=== PATIENT | male | born 1955 | race Caucasian/White ===

== ENCOUNTER 2016-05-22 03:05 | Inpatient (IN) ==
[2016-05-22 03:52] LABS: MANUAL DIFF NEEDED? NO
[2016-05-22 03:54] LABS: BASO% 0.2 % (0.0-0.8); EOS# 0.12 X1000 (0.0-0.7); EOS% 0.7 % (0.0-10.0); HEMATOCRIT 38.7 % (42.0-52.0); HEMOGLOBIN 13.5 g/dL (14.0-18.0); IMM GRAN# 0.07 X1000 (0.0-0.04); IMM GRAN% 0.4 % (0.0-0.5); LYMPH# 0.71 X1000 (1.2-3.4); LYMPH% 4.1 % (20.5-51.1); MCH 30.6 PG (27-31); MCHC 34.9 g/dL (33-37); MCV 87.8 FL (81-99); MONO# 1.75 X1000 (0.11-0.59); MONO% 10.1 % (1.7-9.3); MPV 12.7 FL (7.4-10.4); NEUT% 84.5 % (42.2-75.2); PLT 117 X1000 (130-400); RBC 4.41 XMIL (4.7-6.1)
[2016-05-22 03:54] LABS: URINE CULTURE NEEDED? NO; URINE MICRO REVIEW NEEDED? NO
[2016-05-22 03:57] LABS: BILIRUBIN URINE NEGATIVE (NEGATIVE); BLOOD URINE TRACE (NEGATIVE); COLOR YELLOW; GLUCOSE URINE NEGATIVE (NEGATIVE); LEUKOCYTES URINE NEGATIVE (NEGATIVE); NITRITE URINE NEGATIVE (NEGATIVE); PROTEIN URINE NEGATIVE (NEGATIVE); SP GRAVITY URINE 1.009; TURBIDITY URINE CLEAR (CLEAR); UROBILINOGEN URINE NORMAL (NORMAL)
[2016-05-22 03:59] LABS: UR EPITHELIAL CELLS <10 /HPF (<10); URINE BACTERIA NEGATIVE /HPF; URINE RBC <10 /HPF (<10); URINE WBC <10 /HPF (<10)
[2016-05-22 04:16] LABS: URINE SOURCE CLEAN CATCH
[2016-05-22 04:31] LABS: UR AMPHETAMINES QUAL NONE DETECTED (NONE DETECT); UR BARBITUATES QUAL NONE DETECTED (NONE DETECT); UR BENZODIAZEPIN QUAL NONE DETECTED (NONE DETECT); UR CANNABINOIDS QUAL NONE DETECTED (NONE DETECT); UR COCAINE QUAL NONE DETECTED (NONE DETECT); UR METHADONE QUAL NONE DETECTED (NONE DETECT); UR OPIATES QUAL PRESUMPTIVE POSITIVE (NONE DETECT); UR OXYCODONE QUAL PRESUMPTIVE POSITIVE (NONE DETECT); UR PCP QUAL NONE DETECTED (NONE DETECT)
[2016-05-22 04:31] LABS: AGAP 17; ALBUMIN 4.3 g/dL (3.5-5.0); ALKALINE PHOSPHATASE 78 U/L (32-122); BUN 19 mg/dL (8-22); CALCIUM 11.2 mg/dL (8.8-10.2); CHLORIDE 89 mmol/L (98-107); CK PROFILE 83 U/L (24-204); COSMO 268; GOT 16 U/L (10-34); GPT 12 U/L (10-44); POTASSIUM 2.8 mmol/L (3.5-5.1); SODIUM 132 mmol/L (136-145); TCO2 26 mmol/L (25-35); TOTAL BILIRUBIN 2.21 mg/dL (0.20-1.00)
[2016-05-22 04:38] LABS: INR 0.96; PROTIME 9.8 Seconds (9.2-11.7); PTT 30.5 Seconds (22.0-36.0)
[2016-05-22] MEDS ORDERED: KLOR-CON PO ONE (04:39)
[2016-05-22 05:00] LABS: ALLEN TEST YES; BE 4.1 mmoll (-3.0-3.0); BLOOD TYPE ARTERIAL; DRAW SITE R RADIAL; METHB 1.5 % (0.0-1.5); MODALITY ROOM AIR; O2(CT) 18.2 mL/dL (15.0-23.0); PCO2(98.6) 41 mmHg (35-45); PO2(98.6) 63 mmHg (60-100); SAMPLE BLOOD; SAO2 97.5 % (95.0-100.0); THB 13.9 g/dL (11.5-17.4); pH(98.6) 7.45 (7.35-7.45)
[2016-05-22] MEDS ORDERED: VANCOMYCIN 1 GM/NS 1 GM/250 ML IVPB IV ONE (06:04)
[2016-05-22] MEDS ORDERED: ZOSYN 3.375 GM/NS 3.375 GM/50 ML IVPB IV ONE (06:05)
--- NOTE | 2016-05-22 06:30 | PROVIDER DOCUMENTATION ---
This chart was entered by Master Watt Scribe, acting as scribe for Marcus Fink MD. HPI-General Adult - General Chief Complaint: Altered Mental Status Stated Complaint: AMS Time Seen by Provider: 05/22/16 03:47 Source: patient, family Allergies/Adverse Reactions: Patient Allergies Allergy/AdvReac Type Severity Reaction Status Date / Time No Known Allergies Allergy Verified 05/22/16 03:35 Home Medications: Home Medication List Medication Instructions Recorded Confirmed Last Taken Type Amlodipine Besylate [Norvasc] 10 mg PO DAILY 05/23/16 05/24/16 05/23/16 History Hydrochlorothiazide 25 mg PO DAILY 05/23/16 05/24/16 05/23/16 History Doxycycline [Vibramycin] 100 mg PO DAILY PRN 05/24/16 05/24/16 Unknown History Losartan Potassium 100 mg PO DAILY 05/24/16 05/24/16 Unknown History Potassium Chloride 10 meq PO DAILY 05/24/16 05/24/16 Unknown History - History of Present Illness -Gen Adult Nature of Presenting Problems: Pt is a 60 yom who presents to ER via EMS with CC of AMS. reports that pt had a lumbar lamenectomy performed on , was discharged Monday and given rx for hydrocondone and flexiril. reports that pt "took way too many muscle relaxers and pain pills, is high as a kite, and hasn't changed in almost 24 hours." reports that pt has been hallucinating all day and was unable to ambulate on Monday after being driven home. Pt reports that no matter how many pain pills he took, the pain would not resolve. Location of Pain/Injury: reports: back Pain Radiation: reports: no radiation Quality of Pain: reports: aching, cramping Severity: reports: severe Onset/Duration: reports: 24 hours ago Timing: reports: still present Associated Symptoms: reports: back/neck pain, constipation, swelling/mass in abdomen, trouble walking, other (hallucinating). denies: anxiety, arm pain, chest pain, cough, diaphoresis, diarrhea, dizziness, EENT symptoms, fatigue, fever/chills, genitourinary problems, headaches, heartburn, joint pain, loss of appetite, malaise, muscle aches, sinus congestion/drainage, nausea, rash, seizure, shortness of breath, sensory/motor loss, pain with inspiration, syncope , vomiting, weakness Similar Symptoms Previously?: No Recently seen or treated by another doctor?: Yes (Lumbar lemenectomy on ) Review of Systems - Adult - REVIEW OF SYSTEMS - ADULT Constitutional: denies: chills, fever, fatique, night sweats, weight gain, weight loss Eyes: reports: no symptoms reported Ears, Nose, Mouth & Throat: reports: no symptoms reported Cardiovascular: reports: no symptoms reported Respiratory: reports: no symptoms reported Gastrointestinal: reports: no symptoms reported Genitourinary: reports: no symptoms reported Musculoskeletal: reports: back pain, joint pain, muscle aches, muscle weakness. denies: bone pain, frequent leg cramps, joint swelling, neck pain Integumentary: reports: no symptoms reported Neurological: reports: no symptoms reported Psychiatric: reports: other (hallucinating). denies: anxiety, anti-depressant use, alcohol/drug dependence, depression, emotional problems, insomnia, panic attacks, suicidal thoughts Endocrine: reports: no symptoms reported Hematologic/Lymphatic: reports: no symptoms reported Allergic/Immunologic: reports: no symptoms reported All Other Systems: Reviewed and Negative Past History - Adult - PAST MEDICAL HISTORY-ADULT Review of Records: reports: Old Records Reviewed, Nursing Assessment Review, Medications Reviewed - IMMUNIZATION STATUS Childhood Immunizations: See Nurse Assessment Flu Vaccine: See Nurse Assessment Physical Exam-General - PHYSICAL EXAM-ADULT Initial Vital Signs Reviewed: Yes - CONSTITUTIONAL General Appearance: appears well, alert, moderate distress, lethargic. negative : no apparent distress, mild distress, severe distress, cachetic, obese, thin, anxious, slow to respond, obtunded, combative - EYES Eyes: PERRL/EOMI, fundi clear, no AV nicking, scleral icterus. negative: pink conjunctivae - HEAD, EARS, NOSE, MOUTH & THROAT HENMT: normocephalic/atraumatic, moist mucous membranes, normal ENT inspection - NECK Neck: non-tender, full range of motion, supple. negative: C-spine tenderness, limited range of motion, lymphadenopathy - RESPIRATORY Respiratory: chest non-tender, lungs clear, normal breath sounds, no pleuratic chest pain, no respiratory distress, no accessory muscle use. negative: respiratory distress, decreased breath sounds, accessory muscle use, wheezing - CARDIOVASCULAR Cardiovascular: normal peripheral pulses, tachycardia, other (hypertensive (163/ 99)). negative: regular rate, rhythm, bradycardia, irregularly irregular - GASTROINTESTINAL (ABDOMEN) Abdominal Exam: normal bowel sounds, non tender, mass (superpubic/RUQ/RLQ). negative: soft, tenderness - LYMPHATIC Lymphatic: no adenopathy - MUSCULOSKELETAL Back Exam: normal inspection, no CVA tenderness, no vertebral tenderness Extremity: normal range of motion, non-tender - SKIN Integumentary: normal color, normal turgor, warm/dry, warm. negative: abrasion( s), diaphoresis, ecchymosis, erythema, laceration(s), swelling, tenderness - NEUROLOGIC Neurologic: grossly normal, no motor/sensory deficits - PSYCHIATRIC Psych/Mental Status: normal thought content, normal thought process, oriented x 3, depressed affect. negative: normal mood/affect Progress - PLAN OF CARE/RESULTS Progress/Plan/Lab Results: Vital Signs - 8 hr 05/22/16 03:05 05/22/16 03:28 05/22/16 04:27 Temperature 97.6 F 97.6 F Pulse Rate 117 H 113 H 109 H Respiratory Rate 23 22 21 Blood Pressure 131/86 131/86 142/88 O2 Sat by Pulse Oximetry 93 L 93 L 95 Laboratory Results - last 24 hr 05/22/16 05/22/16 05/22/16 03:00 03:00 03:00 WBC 17.31 H RBC 4.41 L Hgb 13.5 L Hct 38.7 L MCV 87.8 MCH 30.6 MCHC 34.9 RDW Std Deviation 14.1 Plt Count 117 L MPV 12.7 H Immature Gran % (Auto) 0.4 Neut % (Auto) 84.5 H Lymph % (Auto) 4.1 L [place] % (Auto) 10.1 H Eos % (Auto) 0.7 Baso % (Auto) 0.2 Immature Gran # (Auto) 0.07 H Neut # (Auto) 14.63 H Lymph # (Auto) 0.71 L [place] # (Auto) 1.75 H Eos # (Auto) 0.12 Baso # (Auto) 0.03 PT INR PTT (Actin FS) Sodium 132 L Potassium 2.8 L Chloride 89 L Carbon Dioxide 26 Anion Gap 17 BUN 19 Creatinine 0.8 Estimated GFR/1.73 m2 > 60 BUN/Creatinine Ratio 24 Glucose 115 H POC Glucose Calculated Osmolality 268 Calcium 11.2 H Total Bilirubin 2.21 H AST 16 ALT 12 Alkaline Phosphatase 78 Creatine Kinase 83 Troponin T Total Protein 7.0 Albumin 4.3 Globulin 2.7 Albumin/Globulin Ratio 1.6 Urine Source Urine Color Urine Turbidity Urine pH Ur Specific [place] Urine Protein Ur Glucose (Stick) Ur Ketones (Stick) Urine Blood Urine Nitrite Urine Bilirubin Urobilinogen Dipstick Urine Leukocytes Urine WBC (Auto) Urine RBC (Auto) U Epithel Cells (Auto) Urine Bacteria (Auto) Urine Opiates Screen Ur Oxycodone Screen Ur Methadone, Qual Ur Barbiturates Screen Ur Phencyclidine Scrn Ur Amphetamines Screen U Benzodiazepines Scrn Urine Cocaine Screen U Cannabinoids Screen Plasma/Serum Ethyl Alc 05/22/16 05/22/16 05/22/16 03:00 03:00 03:18 WBC RBC Hgb Hct MCV MCH MCHC RDW Std Deviation Plt Count MPV Immature Gran % (Auto) Neut % (Auto) Lymph % (Auto) [place] % (Auto) Eos % (Auto) Baso % (Auto) Immature Gran # (Auto) Neut # (Auto) Lymph # (Auto) [place] # (Auto) Eos # (Auto) Baso # (Auto) PT 9.8 INR 0.96 PTT (Actin FS) 30.5 Sodium Potassium Chloride Carbon Dioxide Anion Gap BUN Creatinine Estimated GFR/1.73 m2 BUN/Creatinine Ratio Glucose POC Glucose 98 Calculated Osmolality Calcium Total Bilirubin AST ALT Alkaline Phosphatase Creatine Kinase Troponin T < 0.010 Total Protein Albumin Globulin Albumin/Globulin Ratio Urine Source Urine Color Urine Turbidity Urine pH Ur Specific [place] Urine Protein Ur Glucose (Stick) Ur Ketones (Stick) Urine Blood Urine Nitrite Urine Bilirubin Urobilinogen Dipstick Urine Leukocytes Urine WBC (Auto) Urine RBC (Auto) U Epithel Cells (Auto) Urine Bacteria (Auto) Urine Opiates Screen Ur Oxycodone Screen Ur Methadone, Qual Ur Barbiturates Screen Ur Phencyclidine Scrn Ur Amphetamines Screen U Benzodiazepines Scrn Urine Cocaine Screen U Cannabinoids Screen Plasma/Serum Ethyl Alc 05/22/16 05/22/16 03:45 03:45 WBC RBC Hgb Hct MCV MCH MCHC RDW Std Deviation Plt Count MPV Immature Gran % (Auto) Neut % (Auto) Lymph % (Auto) [place] % (Auto) Eos % (Auto) Baso % (Auto) Immature Gran # (Auto) Neut # (Auto) Lymph # (Auto) [place] # (Auto) Eos # (Auto) Baso # (Auto) PT INR PTT (Actin FS) Sodium Potassium Chloride Carbon Dioxide Anion Gap BUN Creatinine Estimated GFR/1.73 m2 BUN/Creatinine Ratio Glucose POC Glucose Calculated Osmolality Calcium Total Bilirubin AST ALT Alkaline Phosphatase Creatine Kinase Troponin T Total Protein Albumin Globulin Albumin/Globulin Ratio Urine Source CLEAN CATCH Urine Color YELLOW Urine Turbidity CLEAR Urine pH 6.0 Ur Specific [place] 1.009 Urine Protein NEGATIVE Ur Glucose (Stick) NEGATIVE Ur Ketones (Stick) TRACE A Urine Blood TRACE A Urine Nitrite NEGATIVE Urine Bilirubin NEGATIVE Urobilinogen Dipstick NORMAL Urine Leukocytes NEGATIVE Urine WBC (Auto) <10 Urine RBC (Auto) <10 U Epithel Cells (Auto) <10 Urine Bacteria (Auto) NEGATIVE Urine Opiates Screen PRESUMPTIVE POSITIVE A Ur Oxycodone Screen PRESUMPTIVE POSITIVE A Ur Methadone, Qual NONE DETECTED Ur Barbiturates Screen NONE DETECTED Ur Phencyclidine Scrn NONE DETECTED Ur Amphetamines Screen NONE DETECTED U Benzodiazepines Scrn NONE DETECTED Urine Cocaine Screen NONE DETECTED U Cannabinoids Screen NONE DETECTED Plasma/Serum Ethyl Alc Orders Category Date Time Status Cardiac Monitoring DIRECTED Care 05/22/16 03:43 Active Finger Stick Blood Sugar (ED) DIRECTED Care 05/22/16 03:43 Active Oxygen Therapy- ED Nursing DIRECTED Care 05/22/16 03:43 Active Saline Loc NOW Care 05/22/16 03:43 Active CHEST-PORTABLE [RAD] Stat Exams 05/22/16 03:43 Taken ABG [RESP] Routine Lab 05/22/16 03:43 Ordered ALCOHOL BLOOD Stat Lab 05/22/16 03:00 Completed CBC WITH ELECTRONIC DIFF [HEME] Stat Lab 05/22/16 03:00 Completed CK PROFILE [SP CHEM] Stat Lab 05/22/16 03:00 Completed COMPREHENSIVE METABOLIC PANEL [CHEM] Stat Lab 05/22/16 03:00 Completed PROTIME WITH INR [COAG] Stat Lab 05/22/16 03:00 Completed PTT [COAG] Stat Lab 05/22/16 03:00 Completed TROPONIN T Stat Lab 05/22/16 03:00 Completed URINALYSIS W/POSS RFLX CULT [URINALYSIS] Stat Lab 05/22/16 03:45 Completed URINE DRUG SCREEN Stat Lab 05/22/16 03:45 Completed Potassium Chloride E.r. [Klor-Con] Med 05/22/16 04:39 Discontinued 60 meq PO NOW ONE Pulse Oximetry Stat Oth 05/22/16 03:43 Active EKG [EKG] Stat Ther 05/22/16 03:43 Ordered Result Diagrams: 05/25/16 05:49 05/25/16 05:49 - EKG 1 Time of EKG reading by physician:: 03:17 EKG Read and Signed by:: Marcus Fink EKG Interpretation (*Must complete 3 of following elements*): Abnormal ( Biatrial enlargement; Nonspecific ST abnormality) Rate: 115 - XRAY 1 XRAY: Bilateral XRAY Study: Chest Impression: See EMR Report XRAY Interpretation: Negative Departure - Departure Time of Disposition Decision: 06:06 DIAGNOSIS: Altered mental state Qualifiers: Altered mental status type: unspecified Qualified Code(s): R41.82 - Altered mental status, unspecified Disposition: ADMITTED INPATIENT 09 Certified Medical Emergency: Emergent Condition: Stable This chart was documented by the indicated scribe, (Master Watt, Maye) and accurately reflects the services I performed and decisions made by , Marcus Fink MD, as attested by the provider's signature.
--- NOTE | 2016-05-22 09:52 | Diag Imaging Result Document ---
PROCEDURE NAME: CHEST-PORTABLE - 05/22/2016 PORTABLE CHEST: No comparison exam. FINDINGS: Allowing for the AP projection, heart size appears within normal limits. There is tortuosity of the thoracic aorta. Inspiration is mildly shallow. The lungs appear clear. There is no pleural effusion or pneumothorax identified. IMPRESSION: Mildly shallow inspiration. No other evidence of acute disease.
[2016-05-22] MEDS ORDERED: ROBAXIN 1,000 MG in NS 50 ML IV PRN (10:22)
--- NOTE | 2016-05-22 11:30 | Diag Imaging Result Document ---
PROCEDURE NAME: HEAD W/O CONTRAST - 05/22/2016 CT HEAD WITHOUT CONTRAST: TECHNIQUE: A dose reduction protocol was used. No comparison exam. FINDINGS: There are mild atrophic changes and mild chronic appearing microvascular ischemic changes. There is no indication of recent infarct, although acute infarcts may not be immediately visible. There is mild ventricular asymmetry compatible with normal variation. There is no evidence of hemorrhage, mass effect, midline shift, or hydrocephalus. Visualized portions of paranasal sinuses appear clear. IMPRESSION: No visible acute intracranial abnormality. No hemorrhage or mass effect.
[2016-05-22] MEDS ORDERED: VANCOMYCIN IV PER PHARMACY MISC SCH (13:10)
[2016-05-22] MEDS ORDERED: ZOFRAN IV PRN (13:10)
[2016-05-22] MEDS: NS 1,000 ML IV SCH ×2 (13:34→21:36)
[2016-05-22] MEDS: TYLENOL PO PRN ×2 (13:34→21:48)
--- NOTE | 2016-05-22 13:58 | Diag Imaging Result Document ---
PROCEDURE NAME: FEMUR MIN 2 VIEWS RIGHT - 05/22/2016 RIGHT FEMUR, 4 VIEWS: FINDINGS: There is no fracture identified. There is no hip dislocation identified. There is no destructive or sclerotic lesion identified. IMPRESSION: Unremarkable exam.
--- NOTE | 2016-05-22 14:00 | Diag Imaging Result Document ---
PROCEDURE NAME: LOWER LEG-RIGHT - 05/22/2016 RIGHT LOWER LEG, 4 VIEWS: FINDINGS: There is no fracture identified. There is no destructive or sclerotic lesion identified. IMPRESSION: Unremarkable exam.
--- NOTE | 2016-05-22 15:07 | HISTORY AND PHYSICAL ---
PRIMARY CARE PROVIDER: Dr. Guerrero. PRIMARY NEURO ORTHOPEDIC: Dr. Bond in [place]. CHIEF COMPLAINT: Right lower extremity pain from the knee down and altered mental status. HISTORY OF PRESENT ILLNESS: Mr. Kalin José is a 60-year-old male who reports a medical history of hypertension and BPH and this is found through ER record. The was not at the bedside during my visit but apparently on he had a lumbar laminectomy by Dr. Bond in [place]. He was discharged Monday with prescriptions for hydrocodone and Flexeril. Apparently the reports that he has been high for 24 hours experiencing hallucinations. He did not ambulate on Monday and the patient states that the pain would not go away despite the amount of pain medications. When he arrived a Jose catheter was placed and at 2500 mL of urine output they clamped the Jose and then later they unclamped it and he had an additional 2100 mL of urine output. He denies fever, chills. He does state that he is constipated and his last bowel movement was Monday before the surgery. Denies blood in his urine or stool. States that he has not been able to void. He has a history of BPH and TURP procedure back in the 80s. When asked him about pain he states that he has pain from the right knee down to the foot and is very sensitive to touch. There is some mild coolness compared to the left leg noted but there is good pulses bilaterally and he has walked to the bathroom without difficulties. Will hold all pain medications and muscle relaxers, send him for head CT to rule out any disorders of the brain that can be obtained through CT. He does have some hallucinations. He is able to tell me his name and what year it is but not where he is at and he is good bit delusional also just random thoughts. Vitals are stable. Will send him to the medical floor and continue with IV fluid hydration, regular diet. PAST MEDICAL HISTORY: Hypertension, BPH. SURGICAL HISTORY: TURP in the 80s and recently lumbar laminectomy. SOCIAL HISTORY: Denies tobacco. He says he drinks 1-2 bourbons over ice every day. Denies illicit drug use and lives with his . FAMILY HISTORY: Father had a stroke. REVIEW OF SYSTEMS: Difficult to obtain but essentially were negative except for those mentioned in the above HPI. ALLERGIES: No known drug allergies. HOME MEDICATIONS: Norvasc 2.5 mg p.o. daily, Flexeril 10 mg p.o. t.i.d. as needed, hydrochlorothiazide 12.5 mg p.o. daily, [place] 7.5 one tab p.o. every 6 hours as needed, Robaxin 750 mg p.o. t.i.d. as needed. PHYSICAL EXAMINATION: VITAL SIGNS: Temperature is 98.2 degrees, heart rate 99, respiratory rate 17, blood pressure 158/95, saturation 95% on 2 L nasal cannula. GENERAL: Mr. José is a 60-year-old male who appears very healthy. He is not in any acute distress but is having random conversations. He is able answers some questions appropriately. HEENT: Atraumatic, normocephalic. Pupils equal, round, reactive to light. Mucous membranes dry. NECK: No JVD or carotid bruits. CARDIOVASCULAR: S1, S2. Regular rate and rhythm. No rubs, gallops, or murmurs. PULMONARY: Clear to auscultation. Bilateral breath sounds. No accessory muscle use or work of breathing noted. GI: Soft, nontender, nondistended. Positive bowel sounds x4. NEUROLOGIC: A and O times name and year only, random conversations, follows commands, moves all extremities equally. SKIN: Warm, dry, intact. Back incision with a antibiotic blue so incision is intact, no signs of infection. EXTREMITIES: Right knee all the way down to the foot is mildly cooler than the left leg. He has got +2 dorsalis and radial pulses and moves extremities equally. Severe pain with the right leg when he moves it or when is touched. ASSESSMENT AND PLAN: 1. Metabolic questionable infectious, questionable toxic encephalopathy. Mentation is altered. Will send for stat head CT and there is no nuchal rigidity but if he seems to worsen with his mentation will consider spinal tap for cultures. 2. Hypokalemia. Received 60 p.o. potassium, will recheck at 5 o'clock. 3. Leukocytosis. Lactate is normal. His white blood cells 17,000, temperature is 98.1 degrees. He has had a recent surgery, maybe even had steroids at some point but is unknown but blood cultures have been sent. Urinalysis and culture has been sent. There is no productive cough so sputum has not been ordered. He will be on vancomycin and Zosyn for broad spectrum coverage. 4. Hypertension. Continue home medications. 5. Urinary retention likely secondary to pain medication use. Will continue with Jose catheter. He has had a total of 4600 mL since admit of urine. 6. History of benign prostatic hypertrophy with transurethral resection of prostate. 7. Acute pain secondary to recent surgery. He has used too many pain medications likely and will hold all pain medications for now and Tylenol as needed. 8. He has had a lumbar laminectomy incision was dry and intact with glue intact. He is able walk. Will order physical therapy. 9. Constipation. Stool softeners. 10. Pain of the right knee down. Order ultrasound, Dopplers and x-ray. He does tend to keep his right knee and leg rotated out. He states he has not fallen but he is confused so go ahead and order x-ray imaging just to rule out any injuries. 11. Alcohol abuse. Will have to monitor. He has altered mentation right now. 12. Deep venous thrombosis prophylaxis Lovenox. 13. Gastrointestinal prophylaxis. Proton pump inhibitor. Dictated by JUJU Giraldo for Tae St MD cc: Gael Bond MD
[2016-05-22] MEDS: ZOSYN 3.375 GM/NS 3.375 GM/50 ML IVPB IV SCH ×2 (17:01→21:33)
[2016-05-22] MEDS: ATIVAN IV SCH ×2 (18:13→22:21)
[2016-05-22] MEDS: LIBRIUM PO SCH (18:14)
[2016-05-22] MEDS ORDERED: VALIUM IV ONE ×2 (20:44→22:03)
[2016-05-22] MEDS: VANCOMYCIN 2 GM in NS 500 ML IV SCH (21:33)
[2016-05-22] MEDS: PHENOBARBITAL IV PRN ×2 (21:33→23:57)
[2016-05-22] MEDS: PERICOLACE PO SCH (21:34)
[2016-05-23] MEDS: LIBRIUM PO SCH ×5 (01:22→17:35)
[2016-05-23] MEDS: ATIVAN IV SCH ×6 (02:18→21:36)
[2016-05-23] MEDS: ZOSYN 3.375 GM/NS 3.375 GM/50 ML IVPB IV SCH ×4 (02:18→20:47)
[2016-05-23 02:38] LABS: URINE SOURCE CATH
[2016-05-23 02:40] LABS: BILIRUBIN URINE NEGATIVE (NEGATIVE); BLOOD URINE MODERATE (NEGATIVE); COLOR YELLOW; GLUCOSE URINE NEGATIVE (NEGATIVE); LEUKOCYTES URINE TRACE (NEGATIVE); NITRITE URINE NEGATIVE (NEGATIVE); PROTEIN URINE 100 mg/dL (NEGATIVE); SP GRAVITY URINE 1.033; TURBIDITY URINE CLEAR (CLEAR); UROBILINOGEN URINE NORMAL (NORMAL)
[2016-05-23 02:41] LABS: URINE MICRO REVIEW NEEDED? YES
[2016-05-23 02:42] LABS: UR EPITHELIAL CELLS <10 /HPF (<10); URINE BACTERIA NEGATIVE /HPF; URINE CULTURE NEEDED? YES; URINE RBC TNTC /HPF (<10); URINE WBC <10 /HPF (<10)
[2016-05-23] MEDS: POTASSIUM CHLORIDE 20 MEQ/SWI 20 MEQ/100 ML IVPB IV SCH ×2 (04:09→05:19)
[2016-05-23] MEDS: SODIUM CHLORIDE 0.9% INJ SCH (04:09)
[2016-05-23] MEDS: PROTONIX IV SCH (04:10)
[2016-05-23 04:21] LABS: MANUAL DIFF NEEDED? NO
[2016-05-23 04:23] LABS: BASO% 0.2 % (0.0-0.8); EOS# 0.18 X1000 (0.0-0.7); EOS% 1.6 % (0.0-10.0); HEMATOCRIT 36.9 % (42.0-52.0); HEMOGLOBIN 12.7 g/dL (14.0-18.0); IMM GRAN# 0.05 X1000 (0.0-0.04); IMM GRAN% 0.5 % (0.0-0.5); LYMPH# 1.18 X1000 (1.2-3.4); LYMPH% 10.6 % (20.5-51.1); MCH 30.7 PG (27-31); MCHC 34.4 g/dL (33-37); MCV 89.1 FL (81-99); MONO# 1.18 X1000 (0.11-0.59); MONO% 10.6 % (1.7-9.3); NEUT% 76.5 % (42.2-75.2); PLT 107 X1000 (130-400); RBC 4.14 XMIL (4.7-6.1)
[2016-05-23] MEDS: PHENOBARBITAL IV PRN ×2 (04:24→12:21)
[2016-05-23 04:32] LABS: INR 1.02; PROTIME 10.7 Seconds (9.2-11.7); PTT 34.3 Seconds (22.0-36.0)
[2016-05-23 05:01] LABS: AGAP 17; ALBUMIN 3.7 g/dL (3.5-5.0); ALKALINE PHOSPHATASE 67 U/L (32-122); BUN 13 mg/dL (8-22); CALCIUM 8.7 mg/dL (8.8-10.2); CHLORIDE 100 mmol/L (98-107); COSMO 282; GOT 13 U/L (10-34); GPT 10 U/L (10-44); MAGNESIUM 1.7 mg/dL (1.5-2.7); POTASSIUM 2.9 mmol/L (3.5-5.1); SODIUM 142 mmol/L (136-145); TCO2 25 mmol/L (25-35); TOTAL BILIRUBIN 1.69 mg/dL (0.20-1.00); TOTAL PROTEIN 6.2 g/dL (6.3-8.3)
[2016-05-23] MEDS: TYLENOL PO PRN (05:22)
--- NOTE | 2016-05-23 05:59 | EKG Report ---
Test Performed on : 05/22/2016 03:17:24 AM Test Reason : AMS Blood Pressure : / mmHG Vent. Rate : 115 BPM Atrial Rate : 115 BPM P-R Int : 134 ms QRS Dur : 102 ms QT Int : 334 ms P-R-T Axes : 048 006 052 degrees QTc Int : 462 ms Sinus tachycardia. Biatrial enlargement Nonspecific ST abnormality Abnormal ECG No previous ECGs available Unconfirmed Result
[2016-05-23] MEDS ORDERED: MAGNESIUM SULFATE 2 GM/S.W.I. 2 GM/50 ML IVPB IV ONE (06:40)
[2016-05-23] MEDS ORDERED: PRILOSEC PO SCH (07:00)
[2016-05-23] MEDS ORDERED: LOVENOX SUBQ SCH (09:00)
[2016-05-23] MEDS: HYDROCHLOROTHIAZIDE PO SCH ×3 (09:37→10:10)
[2016-05-23] MEDS: PERICOLACE PO SCH ×4 (09:38→20:47)
[2016-05-23] MEDS: NORVASC PO SCH ×3 (09:38→10:09)
[2016-05-23] MEDS: NS 1,000 ML IV SCH ×3 (10:02→20:46)
[2016-05-23 11:41] LABS: AGAP 16; BUN 13 mg/dL (8-22); CALCIUM 8.2 mg/dL (8.8-10.2); CHLORIDE 101 mmol/L (98-107); COSMO 282; POTASSIUM 3.2 mmol/L (3.5-5.1); SODIUM 142 mmol/L (136-145); TCO2 25 mmol/L (25-35)
[2016-05-23] MEDS ORDERED: POTASSIUM CHLORIDE 60 MEQ in NS 500 ML IV ONE (13:00)
--- NOTE | 2016-05-23 13:30 | PROGRESS NOTE ---
DATE: 05/23/2016 SUBJECTIVE: The patient is currently sedated. OBJECTIVE: Vital Signs: Temperature 97 degrees, blood pressure 163/91, heart rate 97, respirations 14, O2 saturation is 98% on 2 L nasal cannula. General: This is an elderly male, lying in bed, sedated. Head: Normocephalic, atraumatic. Heart: S1, S2 normal. Tachycardic. Lungs: Clear to auscultation bilaterally. Abdomen: Positive bowel sounds. Soft, nontender, nondistended. Extremities: No edema. No cyanosis. No calf tenderness. LABS: White blood cell count 11, hemoglobin 12, hematocrit 36, platelets 107,000. Sodium 142, potassium 3.2, chloride 101, CO2 25, BUN 13, creatinine 0.5, glucose 78, magnesium 1.7, total bilirubin 1.6, AST 13, ALT 10, alkaline phosphatase 67. ASSESSMENT AND PLAN: 1. Acute alcohol withdrawal. We will continue on p.r.n. Ativan and p.r.n. phenobarbital. 2. Leukocytosis. Improved. The patient is currently on empiric antibiotic therapy. So far the cultures were unremarkable and the chest x-ray has been negative. 3. Status post lumbar laminectomy. Aware. 4. Alcohol abuse. Aware. 5. Thrombocytopenia. Will hold anticoagulation at this time. 6. Gastrointestinal prophylaxis. Continue on IV Protonix. cc: Iraida Crawford MD
[2016-05-23] MEDS: VANCOMYCIN 2 GM in NS 500 ML IV SCH (20:48)
[2016-05-24] MEDS: NS 1,000 ML IV SCH (00:54)
[2016-05-24] MEDS: LIBRIUM PO SCH ×6 (01:00→23:32)
[2016-05-24] MEDS: ZOSYN 3.375 GM/NS 3.375 GM/50 ML IVPB IV SCH ×4 (01:09→19:37)
[2016-05-24] MEDS: ATIVAN IV SCH ×7 (01:09→21:44)
[2016-05-24] MEDS: PROTONIX IV SCH (05:07)
[2016-05-24 06:27] LABS: HEMATOCRIT 37.1 % (42.0-52.0); HEMOGLOBIN 12.4 g/dL (14.0-18.0); MCH 30.3 PG (27-31); MCHC 33.4 g/dL (33-37); MCV 90.7 FL (81-99); MPV 12.2 FL (7.4-10.4); RBC 4.09 XMIL (4.7-6.1)
[2016-05-24 06:56] LABS: AGAP 21; BUN 6 mg/dL (8-22); CALCIUM 8.2 mg/dL (8.8-10.2); CHLORIDE 98 mmol/L (98-107); COSMO 272; MAGNESIUM 1.8 mg/dL (1.5-2.7); POTASSIUM 2.7 mmol/L (3.5-5.1); SODIUM 138 mmol/L (136-145); TCO2 19 mmol/L (25-35)
[2016-05-24] MEDS ORDERED: POTASSIUM CHLORIDE 60 MEQ in NS 500 ML IV ONE (06:57)
[2016-05-24] MEDS: HYDROCHLOROTHIAZIDE PO SCH ×2 (08:13→09:54)
[2016-05-24] MEDS: NORVASC PO SCH ×2 (08:13→09:53)
[2016-05-24] MEDS: PERICOLACE PO SCH ×2 (08:13→20:27)
[2016-05-24] MEDS ORDERED: SODIUM PHOSPHATE 40 MMOL in NS 250 ML IV ONE (09:30)
[2016-05-24] MEDS: COZAAR PO SCH (09:53)
--- NOTE | 2016-05-24 12:33 | PROGRESS NOTE ---
DATE: 05/24/2016 SUBJECTIVE: The patient remains sedated. He did have periods of agitation last night and required Ativan. OBJECTIVE: Vital signs: Temperature is 97, blood pressure 170/108, heart rate 91, respirations 24, O2 saturation is 99% on 2 L nasal cannula. General: This is an elderly male lying in bed in no acute distress. Head is normocephalic and atraumatic. Heart: S1, S2 normal. Tachycardic. Lungs: Clear to auscultation bilaterally. Abdomen: Positive bowel sounds. Soft, nontender and nondistended. Extremities: No edema, no cyanosis. Neurologic: The patient is sedated. DIAGNOSTIC DATA: White blood cell count is 8.9, hemoglobin 12, hematocrit 37, platelets 123. Sodium is 138, potassium 2.7, chloride 98, CO2 is 19, BUN is 6, creatinine 0.4, glucose 74, phosphorus 1.7. ASSESSMENT AND PLAN: 1. Alcohol withdrawal. Continue with p.r.n. Ativan and scheduled Librium. 2. Accelerated hypertension. We will start the patient on oral antihypertensives and monitor the pressure closely. If there is no improvement, we will start the patient on a Cardene drip for better blood pressure control. 3. Hypokalemia. We will replace the patient's potassium. 4. Hypophosphatemia. We will replace the patient's phosphorus. 5. History of recent lumbar laminectomy. Aware. 6. Thrombocytopenia. Improved. 7. GI prophylaxis. Continue on IV Protonix. cc: Iraida Crawford MD
[2016-05-24] MEDS ORDERED: CARDENE 20 MG/NS 20 MG/200 ML PIGGYBACK IV SCH (13:00)
[2016-05-24] MEDS: APRESOLINE PO SCH ×2 (13:28→20:27)
[2016-05-24] MEDS: VANCOMYCIN 2 GM in NS 500 ML IV SCH (20:27)
[2016-05-25] MEDS: ZOSYN 3.375 GM/NS 3.375 GM/50 ML IVPB IV SCH ×4 (01:56→20:00)
[2016-05-25] MEDS: ATIVAN IV SCH ×6 (01:56→21:34)
[2016-05-25] MEDS: SODIUM CHLORIDE 0.9% INJ SCH (04:29)
[2016-05-25] MEDS: APRESOLINE PO SCH ×3 (04:29→21:11)
[2016-05-25] MEDS: PROTONIX IV SCH (04:29)
[2016-05-25] MEDS: LIBRIUM PO SCH ×3 (05:34→17:58)
[2016-05-25 07:01] LABS: HEMATOCRIT 38.7 % (42.0-52.0); HEMOGLOBIN 13.5 g/dL (14.0-18.0); MCH 30.4 PG (27-31); MCHC 34.9 g/dL (33-37); MCV 87.2 FL (81-99); MPV 12.1 FL (7.4-10.4); RBC 4.44 XMIL (4.7-6.1)
[2016-05-25 07:07] LABS: AGAP 18; BUN 7 mg/dL (8-22); CALCIUM 9.2 mg/dL (8.8-10.2); CHLORIDE 99 mmol/L (98-107); COSMO 277; MAGNESIUM 1.6 mg/dL (1.5-2.7); POTASSIUM 2.9 mmol/L (3.5-5.1); SODIUM 140 mmol/L (136-145); TCO2 23 mmol/L (25-35)
[2016-05-25] MEDS ORDERED: MAGNESIUM SULFATE 2 GM/S.W.I. 2 GM/50 ML IVPB IV ONE (08:06)
[2016-05-25] MEDS ORDERED: POTASSIUM CHLORIDE 60 MEQ in NS 500 ML IV ONE (08:06)
[2016-05-25] MEDS: PERICOLACE PO SCH ×2 (08:46→21:11)
[2016-05-25] MEDS: HYDROCHLOROTHIAZIDE PO SCH (08:46)
[2016-05-25] MEDS: COZAAR PO SCH (08:46)
[2016-05-25] MEDS: NORVASC PO SCH (08:46)
--- NOTE | 2016-05-25 09:40 | PROGRESS NOTE ---
DATE: 05/25/2016 SUBJECTIVE: The patient remains in alcohol withdrawal. He is requiring sedation on a regular basis. OBJECTIVE: Vital Signs: Temperature 98.2 degrees, blood pressure 160/99, heart rate 96, respirations 26, and O2 saturations 97% on room air. General: This is an elderly male, lying in bed, in no acute distress. Head: Normocephalic, atraumatic. Heart: S1 and S2, normal. Regular rate and rhythm. Lungs: Clear to auscultation bilaterally. No wheezing. No rales. No rhonchi. Abdomen: Positive bowel sounds. Soft, nontender, nondistended. Extremities: No edema. No cyanosis. No calf tenderness. Neurologic: The patient is lethargic and sedated. LABORATORY DATA: White blood cell count 8.6, hemoglobin 13, hematocrit 38, platelets 167,000. Sodium 140, potassium 2.9, chloride 99, CO2 of 23, BUN 7, creatinine 0.5, glucose 87. ASSESSMENT AND PLAN: 1. Alcohol withdrawal. Continue with as needed sedation. We will continue to monitor the patient for improvement. 2. Accelerated hypertension. We will increase the hydralazine to 50 mg by mouth every 8 hours. 3. History of a recent lumbar laminectomy. Aware. 4. Hypokalemia. We will replace the patient's potassium. 5. Hypomagnesemia. We will replace the patient's magnesium. 6. Gastrointestinal prophylaxis. Continue on intravenous Protonix. 7. Deep vein thrombosis prophylaxis. We will start the patient on Lovenox 40 mg subcutaneously daily. cc: Iraida Crawford MD
[2016-05-25] MEDS: LOVENOX SUBQ SCH (09:43)
[2016-05-25] MEDS: PHENOBARBITAL IV PRN (16:31)
[2016-05-25] MEDS: VANCOMYCIN 2 GM in NS 500 ML IV SCH (21:34)
[2016-05-26] MEDS: LIBRIUM PO SCH ×4 (00:36→18:05)
[2016-05-26] MEDS: ATIVAN IV SCH ×6 (02:18→21:40)
[2016-05-26] MEDS: ZOSYN 3.375 GM/NS 3.375 GM/50 ML IVPB IV SCH ×4 (02:18→20:16)
[2016-05-26] MEDS: PROTONIX IV SCH (05:00)
[2016-05-26] MEDS: APRESOLINE PO SCH ×3 (05:32→20:17)
[2016-05-26 07:47] LABS: AGAP 23; BUN 8 mg/dL (8-22); CHLORIDE 99 mmol/L (98-107); COSMO 282; MAGNESIUM 1.9 mg/dL (1.5-2.7); POTASSIUM 3.4 mmol/L (3.5-5.1); SODIUM 143 mmol/L (136-145); TCO2 21 mmol/L (25-35)
[2016-05-26] MEDS: NORVASC PO SCH (09:39)
[2016-05-26] MEDS: PERICOLACE PO SCH ×2 (09:39→20:16)
[2016-05-26] MEDS: HYDROCHLOROTHIAZIDE PO SCH (09:39)
[2016-05-26] MEDS: COZAAR PO SCH (09:40)
[2016-05-26] MEDS: LOVENOX SUBQ SCH (09:40)
[2016-05-26] MEDS ORDERED: POTASSIUM PHOSPHATE 40 MMOL in NS 250.0000 ML IV ONE (10:16)
--- NOTE | 2016-05-26 12:54 | PROGRESS NOTE ---
DATE: 05/26/2016 SUBJECTIVE: The patient remains confused and in alcohol withdrawal. He is still requiring Ativan. OBJECTIVE: Vital Signs: Temperature 98.2 degrees, blood pressure 172/97, heart rate 99, respiratory rate 23, O2 saturation is 100% on room air. General: This is an elderly male, lying in bed. No acute distress. Head: Normocephalic, atraumatic. Heart: S1, S2. Normal. Regular rate and rhythm. Lungs: Clear to auscultation bilaterally. Abdomen: Positive bowel sounds. Soft, nontender, nondistended. Extremities: No edema. No cyanosis. General: The patient is confused and does not follow commands. LABS: Sodium 143, potassium 3.4, chloride 99, CO2 21, BUN 8, creatinine 0.6, glucose 72, phosphorus 2.3. ASSESSMENT AND PLAN: 1. Acute alcohol withdrawal. Continue with Librium and Ativan. Will continue to monitor the patient closely for improvement. 2. Accelerated hypertension. Will continue to adjust the patient's antihypertensives appropriately. 3. Hypokalemia. Will replace the patient's potassium. 4. Hypophosphatemia. Will replace the patient's phosphorus. 5. Recent lumbar laminectomy. Aware. 6. Deep vein thrombosis prophylaxis. Will start the patient on Lovenox. 7. Gastrointestinal prophylaxis. Continue on IV Protonix. 8. The plan of care was discussed with the patient's over the phone. She was also updated on the patient's medical condition. cc: Iraida Crawford MD
[2016-05-26] MEDS: VANCOMYCIN 1,400 MG in NS 250 ML IV SCH ×2 (13:12→23:11)
[2016-05-26] MEDS: TRANDATE PO SCH ×2 (13:16→20:16)
[2016-05-27] MEDS: LIBRIUM PO SCH ×7 (00:04→23:21)
[2016-05-27] MEDS: ZOSYN 3.375 GM/NS 3.375 GM/50 ML IVPB IV SCH ×3 (02:11→14:51)
[2016-05-27] MEDS: ATIVAN IV SCH ×8 (02:11→22:58)
[2016-05-27] MEDS ORDERED: NS 1,000 ML IV SCH (02:25)
--- NOTE | 2016-05-27 04:08 | Extremity Venous Study ---
PROCEDURE NAME: Venous U/S Bilateral Legs - 05/23/2016 STUDY: Bilateral lower extremity venous duplex study. REFERRING PHYSICIAN: Iraida Crawford MD READING PHYSICIAN: Adam Gutierrez MD MACHINE WELDER: Ute. INDICATION: Leg pain. Of note, the patient was in 4-point restraints and sedated and the Valsalva maneuver was not performed. FINDINGS: The deep and superficial veins of both lower extremities were imaged throughout their course. All are compressible with forward flow. No thrombosis is appreciated. INTERPRETATION: No evidence of deep or superficial venous thrombosis in either lower extremity. cc: Adam Gutierrez MD
[2016-05-27] MEDS: APRESOLINE PO SCH (04:20)
[2016-05-27] MEDS: PROTONIX IV SCH (04:20)
[2016-05-27 06:05] LABS: HEMATOCRIT 37.7 % (42.0-52.0); HEMOGLOBIN 12.9 g/dL (14.0-18.0); MCH 30.1 PG (27-31); MCHC 34.2 g/dL (33-37); MCV 87.9 FL (81-99); RBC 4.29 XMIL (4.7-6.1)
[2016-05-27 06:27] LABS: ALBUMIN 3.4 g/dL (3.5-5.0); CALCIUM 8.8 mg/dL (8.8-10.2)
[2016-05-27] MEDS: POTASSIUM CHLORIDE 20 MEQ/SWI 20 MEQ/100 ML IVPB IV SCH ×2 (08:52→11:00)
[2016-05-27] MEDS: 1/2 NS 1,000 ML IV SCH ×2 (08:52→20:32)
[2016-05-27] MEDS: PERICOLACE PO SCH ×3 (08:53→20:32)
[2016-05-27] MEDS: TRANDATE PO SCH ×3 (08:53→20:32)
[2016-05-27] MEDS: NORVASC PO SCH ×2 (08:53→11:26)
[2016-05-27] MEDS: LOVENOX SUBQ SCH (08:54)
--- NOTE | 2016-05-27 13:51 | PROGRESS NOTE ---
DATE: 05/27/2016 SUBJECTIVE: The patient is more awake and alert today; however, he is still confused. OBJECTIVE: Vital Signs: Temperature 99 degrees, blood pressure 121/76, heart rate 90, respirations 24, O2 saturation 95% on room air. General: This is an elderly male, lying in bed in no acute distress. Head: Normocephalic, atraumatic. Heart: S1 and S2 normal. Regular rate and rhythm. Lungs: Clear to auscultation bilaterally. No wheezing. No rales. No rhonchi. Abdomen: Positive bowel sounds. Soft, nontender, nondistended. Extremities: No edema. No cyanosis. No calf tenderness. Neurologic: The patient is confused, but does follow commands on occasion. LABORATORIES: White blood cell count 12, hemoglobin 12, hematocrit 37, platelets 216,000. Sodium 147, potassium 3, chloride 104, CO2 of 27, BUN 18, creatinine 1.7, glucose 101, phosphorus 5.9, magnesium 1.9. ASSESSMENT AND PLAN: 1. Acute alcohol withdrawal. Slowly, the patient is improving; however, he still remains confused. Will continue on p.r.n. Ativan plus Librium. 2. Hypernatremia. We will start the patient on half-normal saline and monitor the sodium closely. 3. Acute kidney injury. The patient will be started on IV fluid hydration. We will also check urine electrolytes. 4. Recent lumbar laminectomy. Stable. 5. Hypokalemia. Replace potassium 6. Hypertension. Controlled. Continue on the current antihypertensives. 7. Deep vein thrombosis prophylaxis. Continue on Lovenox. cc: Iraida Crawford MD [facility]
[2016-05-27 16:19] LABS: UR CREAT RANDOM 81.9 mg/dL (14-26); UR PROT RANDOM 75.7 mg/dL
[2016-05-27 16:53] LABS: ALBUMIN 3.3 g/dL (3.5-5.0); CALCIUM 8.7 mg/dL (8.8-10.2); POTASSIUM 4.2 mmol/L (3.5-5.1)
[2016-05-27 17:32] LABS: URINE MICRO REVIEW NEEDED? NO; URINE SOURCE CATH
[2016-05-27 17:35] LABS: BILIRUBIN URINE NEGATIVE (NEGATIVE); BLOOD URINE SMALL (NEGATIVE); COLOR YELLOW; GLUCOSE URINE NEGATIVE (NEGATIVE); LEUKOCYTES URINE NEGATIVE (NEGATIVE); NITRITE URINE NEGATIVE (NEGATIVE); PH URINE 5.5; PROTEIN URINE 50 mg/dL (NEGATIVE); SP GRAVITY URINE 1.012; TURBIDITY URINE HAZY (CLEAR); UROBILINOGEN URINE NORMAL (NORMAL)
[2016-05-27 17:36] LABS: UR EPITHELIAL CELLS <10 /HPF (<10); URINE BACTERIA NEGATIVE /HPF; URINE RBC TNTC /HPF (<10); URINE WBC <10 /HPF (<10)
[2016-05-28] MEDS: ATIVAN IV SCH ×6 (01:04→21:08)
[2016-05-28] MEDS: PROTONIX IV SCH (03:22)
[2016-05-28 04:52] LABS: MANUAL DIFF NEEDED? NO
[2016-05-28 05:01] LABS: BASO% 0.4 % (0.0-0.8); EOS# 0.29 X1000 (0.0-0.7); EOS% 2.5 % (0.0-10.0); HEMATOCRIT 35.7 % (42.0-52.0); HEMOGLOBIN 12.2 g/dL (14.0-18.0); IMM GRAN# 0.09 X1000 (0.0-0.04); IMM GRAN% 0.8 % (0.0-0.5); LYMPH# 0.91 X1000 (1.2-3.4); LYMPH% 7.8 % (20.5-51.1); MCH 29.7 PG (27-31); MCHC 34.2 g/dL (33-37); MCV 86.9 FL (81-99); MONO# 1.99 X1000 (0.11-0.59); MONO% 17.1 % (1.7-9.3); MPV 12.2 FL (7.4-10.4); NEUT% 71.4 % (42.2-75.2); PLT 232 X1000 (130-400); RBC 4.11 XMIL (4.7-6.1)
[2016-05-28] MEDS: LIBRIUM PO SCH ×3 (05:09→17:38)
[2016-05-28] MEDS: 1/2 NS 1,000 ML IV SCH ×2 (05:11→16:38)
[2016-05-28 05:32] LABS: CALCIUM 8.6 mg/dL (8.8-10.2); POTASSIUM 3.2 mmol/L (3.5-5.1)
[2016-05-28] MEDS: NORVASC PO SCH (09:16)
[2016-05-28] MEDS: TRANDATE PO SCH ×2 (09:16→21:07)
[2016-05-28] MEDS: LOVENOX SUBQ SCH (09:16)
[2016-05-28] MEDS: PERICOLACE PO SCH ×2 (09:16→21:07)
--- NOTE | 2016-05-28 09:20 | Diag Imaging Result Document ---
PROCEDURE NAME: CHEST-PORTABLE - 05/28/2016 PORTABLE CHEST X-RAY: COMPARISON: 05/22/2016. FINDINGS: The lungs are normally expanded and clear. Heart size and mediastinal contours are normal. No pneumothorax or pleural effusion. IMPRESSION: Negative exam.
[2016-05-28] MEDS: POTASSIUM CHLORIDE 20 MEQ/SWI 20 MEQ/100 ML IVPB IV SCH ×2 (09:48→17:34)
--- NOTE | 2016-05-28 11:30 | Diag Imaging Result Document ---
PROCEDURE NAME: US RENAL 2 (RETROPER) COMPLETE - 05/27/2016 RENAL ULTRASOUND: COMPARISON: None. FINDINGS: The kidneys are normal bilaterally. The urinary bladder is decompressed by a Jose catheter and is, otherwise, normal. The right kidney measures 12.8 x 6.5 x 5.5 cm. Cortex measures 11 mm. The left kidney measures 12 x 5.2 x 6.5 cm. Cortex measures 12 mm. IMPRESSION: Negative exam.
--- NOTE | 2016-05-28 14:38 | PROGRESS NOTE ---
DATE: 05/28/2016 SUBJECTIVE: The patient is more awake and alert today however he is unable to tell me that is in the hospital. He does state that he lives in [place]. OBJECTIVE: Vital Signs: Temperature 98.5 degrees, blood pressure 154/84, heart rate 85, respirations 18, O2 saturations 93% on room air. General: This is an elderly male lying in bed in no acute distress. Head: Normocephalic, atraumatic. Heart: S1, S2 normal. Regular rate and rhythm. Lungs: Clear to auscultation bilaterally. No wheezing. No rales. No rhonchi. Abdomen: Positive bowel sounds. Soft, nontender, nondistended. Extremities: No edema, no cyanosis, no calf tenderness. Neuro: The patient was awake and oriented to self only. He is able to move all 4 extremities. LABS: White blood cell count 11, hemoglobin 12, hematocrit 35, platelets 232, 000. Sodium 142, potassium 3.2, chloride 104, CO2 21, BUN 22, creatinine 3.1, glucose 94. Chest x -ray negative, renal ultrasound negative. ASSESSMENT AND PLAN: 1. Alcohol withdrawal. The patient is slowly improving. He does remain in restraints because he tries to get out of bed. Continue on Ativan and scheduled Librium. 2. Acute kidney injury. The patient's urine output has improved when compared to yesterday however the creatinine continues to rise. Will continue on IV fluid hydration. Hopefully the creatinine will peak and start to normalize. Will consult Nephrology for further recommendations. 3. Hypertension. Controlled. Continue on the current antihypertensives. 4. Hypokalemia. Continue on potassium replacement. 5. Gastrointestinal prophylaxis. Continue on IV Protonix. 6. Recent lumbar laminectomy. Stable. 7. Deep vein thrombosis prophylaxis. Continue on Lovenox. cc: Iraida Crawford MD [facility]
--- NOTE | 2016-05-28 14:54 | CONSULTATION ---
DATE OF CONSULTATION: 05/28/2016 REASON FOR CONSULTATION: Acute kidney injury. HISTORY OF PRESENT ILLNESS: Mr. José is a 60-year-old white male who has hypertension but no other chronic medical illnesses. 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 He had recent surgery on his lumbar spine to address a disk herniation. He has had recurrent episodes of low back pain that have been episodic and severe. No initial trauma. This episode developed having worked in the garden. He underwent MRI which found disk abnormalities and he was seen by in [place] and taken for lumbar laminectomy on of last week 9 days ago. He stayed overnight because of the late hour of the surgery and was feeling okay but on his way home his pain recurred. He states his pain was in his typical pattern with low back pain and pain and weakness in the legs. Because of the severity of his pain he was taking high doses of narcotics with no significant improvement. He did not noticed any change in bowel or bladder function. He did not notice weakness or numbness in the feet and legs. He just had severe ongoing pain. In this context, he began having obvious hallucinations and therefore was brought to the emergency room on the where he was evaluated and subsequently admitted to the hospital. His initial evaluation found evidence of urologic obstruction and a Jose catheter was placed and incrementally removed 4.6 L of urine in the emergency room. At that time he had normal kidney function based on his labs. However since the his creatinine has begun to rise and has risen in a nephric sort of fashion since admission. Despite this, his urine output has remained good though it has been falling during his stay. Only documented 560 mL of urine in the last 24 hours. The chart acknowledges a 5.6 L net fluid balance. He states his pain is controlled now and he is somewhat withdrawn and allows his to answer most questions. He slept a lot during his interview. He has been treated actively with Ativan and Librium for alcohol withdrawal. He drinks 3-4 beverages a night. He has not received IV contrast since admission. He did not receive nonsteroidal anti-inflammatory drugs. He has received vancomycin. His vancomycin level from the was 3.1. He has not experienced hypotension. PAST MEDICAL HISTORY: As above. CURRENT MEDICATIONS: Include normal saline, acetaminophen, amlodipine, Librium, enoxaparin, potassium, labetalol, lorazepam, ondansetron, pantoprazole, phenobarbital, docusate. ALLERGIES: None. SOCIAL HISTORY: Alcohol as above. He is , lives with his . FAMILY HISTORY: Noncontributory. REVIEW OF SYSTEMS: Obtained and otherwise noncontributory. PHYSICAL EXAMINATION: Vital Signs: Blood pressure 154/84, heart rate 85, respiration 18, afebrile. General: Middle-aged man, somnolent but arousable. No acute distress. Skin: Warm and dry. HEENT: Conjunctivae are pink. Pupils are equal. Oropharynx is normal, dentition normal, tongue normal. Neck: Supple. Trachea is midline. Jugular venous wave is visible at perhaps 6 cm of water. Heart: Regular with S4. No S3. No murmurs. Lungs: Have equal breath sounds. No crackles or wheezes. Abdomen: Soft, nontender. Bowel sounds are present. No organomegaly or masses or bruits. Extremities: Have no edema, clubbing, or cyanosis. Intact distal pulses. Neurologic Exam: Grossly nonfocal. Strength is symmetrical. Toes are downgoing. Mental status is depressed as above. LABORATORY DATA: Reviewed. IMPRESSION: Acute kidney injury. Likely acute tubular necrosis though the cause of this is not obvious. He has good urine output. His volume status appears euvolemic. He is receiving intravenous fluids which I think is appropriate. We will continue to reassess. I have reviewed his medications and no changes are required at this time. He certainly is at risk to require hemodialysis though he does not have indications for dialysis currently. Renal ultrasound was unremarkable. Acid base and electrolytes are acceptable. His potassium is being replaced. His only nephrotoxic drug potentially is vancomycin. Seems unlikely that this is the cause. cc: Wayne Betancourt MD
[2016-05-29] MEDS: LIBRIUM PO SCH ×6 (01:00→23:27)
[2016-05-29] MEDS: 1/2 NS 1,000 ML IV SCH ×3 (01:14→21:00)
[2016-05-29] MEDS: ATIVAN IV SCH ×6 (02:41→21:00)
[2016-05-29 06:57] LABS: MANUAL DIFF NEEDED? NO
[2016-05-29 07:06] LABS: BASO% 0.5 % (0.0-0.8); EOS# 0.37 X1000 (0.0-0.7); EOS% 3.6 % (0.0-10.0); HEMATOCRIT 34.5 % (42.0-52.0); HEMOGLOBIN 11.7 g/dL (14.0-18.0); IMM GRAN# 0.11 X1000 (0.0-0.04); IMM GRAN% 1.1 % (0.0-0.5); LYMPH% 10.8 % (20.5-51.1); MCH 29.6 PG (27-31); MCHC 33.9 g/dL (33-37); MCV 87.3 FL (81-99); MONO# 1.51 X1000 (0.11-0.59); MONO% 14.8 % (1.7-9.3); MPV 11.8 FL (7.4-10.4); NEUT% 69.2 % (42.2-75.2); PLT 240 X1000 (130-400); RBC 3.95 XMIL (4.7-6.1)
[2016-05-29] MEDS: PROTONIX IV SCH (07:20)
[2016-05-29 07:24] LABS: ALBUMIN 2.9 g/dL (3.5-5.0); CALCIUM 8.5 mg/dL (8.8-10.2); POTASSIUM 2.9 mmol/L (3.5-5.1)
[2016-05-29] MEDS: LOVENOX SUBQ SCH (08:50)
[2016-05-29] MEDS: TRANDATE PO SCH ×2 (08:50→20:56)
[2016-05-29] MEDS: NORVASC PO SCH (08:50)
[2016-05-29] MEDS: PERICOLACE PO SCH ×2 (08:50→20:58)
[2016-05-29] MEDS ORDERED: POTASSIUM CHLORIDE 40 MEQ in NS 250 ML IV ONE (10:00)
--- NOTE | 2016-05-29 13:44 | PROGRESS NOTE ---
DATE: 05/29/2016 SUBJECTIVE: The patient is awake and alert. He is sitting up, eating breakfast. He knows that he is in the hospital. He has no complaints at this time. OBJECTIVE: Vital Signs: Temperature 98.7 degrees, blood pressure 150/90, heart rate 83, respirations 15, O2 saturation is 98% on room air. General: This is an elderly male, sitting up in bed, in no acute distress. Head: Normocephalic, atraumatic. Heart: S1, S2. Normal. Regular rate and rhythm. Lungs: Clear to auscultation bilaterally. No crackles. No rales. Abdomen: Positive bowel sounds. Soft, nontender, nondistended. Extremities: No edema. No cyanosis. No calf tenderness. Neurologic: The patient is alert and oriented x3. No focal neurologic deficits noted. LABS: White blood cell count 10, hemoglobin 11, hematocrit 34, platelets 240, 000. Sodium 141, potassium 2.9, chloride 104, CO2 21, BUN 26, creatinine 3.8, glucose 75, albumin 2.9. ASSESSMENT AND PLAN: 1. Alcohol withdrawal. Improving slowly. The patient is more awake and alert today and is following commands. We will continue with p.r.n. Ativan and monitor for improvement. 2. Acute kidney injury. The patient's creatinine continues to rise. Will continue with the current therapy. Nephrology is following. 3. Hypertension. The patient's blood pressure is a little higher since the fluids were initiated. Will continue on the current antihypertensives. 4. Hypokalemia. Will replace the patient's potassium. 5. Recent lumbar laminectomy, stable. 6. Gastrointestinal prophylaxis. Continue on IV Protonix. 7. Deep vein thrombosis prophylaxis. Continue on Lovenox. cc: Iraida Crawford MD [facility]
[2016-05-29 17:27] LABS: AGAP 16; BUN 29 mg/dL (8-22); CHLORIDE 102 mmol/L (98-107); COSMO 284; POTASSIUM 3.5 mmol/L (3.5-5.1); SODIUM 139 mmol/L (136-145); TCO2 21 mmol/L (25-35)
[2016-05-29 17:28] LABS: ALBUMIN 3.1 g/dL (3.5-5.0); CALCIUM 8.3 mg/dL (8.8-10.2); MAGNESIUM 1.8 mg/dL (1.5-2.7)
[2016-05-29] MEDS: TYLENOL PO PRN (22:41)
[2016-05-30] MEDS: ATIVAN IV SCH ×2 (00:29→02:07)
[2016-05-30] MEDS: CALMOSEPTINE OINTMENT TOP PRN (00:30)
[2016-05-30] MEDS: PHENOBARBITAL IV PRN ×2 (02:27→06:42)
[2016-05-30] MEDS: ATIVAN IV PRN ×4 (03:45→19:39)
[2016-05-30] MEDS: SODIUM CHLORIDE 0.9% INJ SCH (05:10)
[2016-05-30] MEDS: PROTONIX IV SCH (05:10)
[2016-05-30] MEDS: LIBRIUM PO SCH ×3 (05:10→17:47)
[2016-05-30 07:48] LABS: HEMATOCRIT 32.2 % (42.0-52.0); HEMOGLOBIN 10.8 g/dL (14.0-18.0); MCH 29.9 PG (27-31); MCHC 33.5 g/dL (33-37); MCV 89.2 FL (81-99); MPV 11.8 FL (7.4-10.4); RBC 3.61 XMIL (4.7-6.1)
[2016-05-30] MEDS: 1/2 NS 1,000 ML IV SCH ×2 (08:04→17:47)
[2016-05-30] MEDS: PERICOLACE PO SCH (08:04)
[2016-05-30 08:17] LABS: ALBUMIN 3.1 g/dL (3.5-5.0); CALCIUM 8.4 mg/dL (8.8-10.2); POTASSIUM 3.7 mmol/L (3.5-5.1)
[2016-05-30] MEDS: LOVENOX SUBQ SCH (08:22)
[2016-05-30] MEDS: NORVASC PO SCH (08:22)
[2016-05-30] MEDS: TRANDATE PO SCH ×2 (08:22→19:45)
--- NOTE | 2016-05-30 10:37 | PROGRESS NOTE ---
DATE: 05/30/2016 SUBJECTIVE: The patient is sitting up in bed. He is awake and follows commands. He does continue to have some confusion noted. OBJECTIVE: Vital Signs: Temperature 98.3 degrees, pulse 79, respiratory rate 19, blood pressure 157/87. Intake 3.7 L. Output 1.4 L. Physical Examination: General: This is a middle-aged gentleman resting in bed. He is awake and alert but does appear to have some confusion. His speech remains slurred. HEENT: Normocephalic and atraumatic. His oral mucosa is moist. Conjunctivae pink. Neck: Supple. Trachea midline. He does have some JVD noted. Cardiovascular: Regular rate and rhythm. Gallop appreciated. Pulmonary: He has equal excursion. He is clear bilaterally. Abdomen: Soft. Positive bowel sounds. : He has a Jose catheter with clear yellow urine noted. Extremities: There is no clubbing, cyanosis, or edema. He is moving all extremities. Integumentary: Skin is warm and dry. Somewhat pale. No rash or lesion. Lab Data: WBC of 10.8, hemoglobin 10.8, and platelet count 228,000. Sodium 144 , potassium 3.7, chloride 107, CO2 21, BUN 30, creatinine 4.2, yesterday was 4, day before 3.8. ASSESSMENT AND PLAN: 1. Acute kidney injury/acute atubular necrosis of unclear etiology. It appears that his creatinine elevation is slowing. Cautiously optimistic that he is close to plateau. His urine output is adequate. He has no absolute indication for dialysis today. We will check labs in the morning. Continue to monitor closely and make decisions on a daily basis. 2. Electrolytes, acid-base balance. These are in target. 3. Anemia. He is not anemic. He is stable. 4. Blood pressure acceptable. Seen, data reviewed, discussed with Finn Wei on 05/30/16. I agree with the above assessment and plan of care. rg Dictated by JUJU Ellis for Wayne Betancourt MD cc: Wayne Betancourt MD [facility]
[2016-05-30] MEDS: HALDOL IV PRN (16:44)
--- NOTE | 2016-05-30 17:09 | PROGRESS NOTE ---
DATE: 05/30/2016 SUBJECTIVE: Patient has no focal complaints. OBJECTIVE: Vital signs: Blood pressure 139/78, heart rate of 82, respiratory 19, 98.6, 96% on room air. Cardiovascular: Regular rate and rhythm. Pulmonary: Bilateral breath sounds. Clear to auscultation. GI: Soft, nontender, nondistended. Bowel sounds are positive. Extremities: No clubbing or cyanosis. Lymphatics: No peripheral edema. Neurological: Nonfocal. He is very lethargic but awake but not oriented. DATA: White count 10.8, hemoglobin and hematocrit 10, 32, platelets 228,000. Chemistries, BUN and creatinine of 30 and 4.2. PROBLEM LIST: 1. Alcohol withdrawal syndrome. He seems to be stabilizing, a little bit more awake, alert, oriented today. 2. Encephalopathy likely multifactorial. 3. Acute renal failure. Not quite clear what has induce this. He is not really on any medications that would cause problems as far as nephrotoxic drugs but kidney function has worsened but has stabilized. I anticipate probably will improve. Urine electrolytes are unrevealing as far as prerenal causes and he has no obstructive symptoms. Will continue to monitor. DISPOSITION: Pending resolution of his multiple issues. cc: Joshua Camacho MD
[2016-05-30] MEDS: TYLENOL PO PRN (19:45)
[2016-05-31] MEDS: PERICOLACE PO SCH ×3 (02:15→20:14)
[2016-05-31] MEDS: TRANDATE PO SCH ×3 (02:16→20:14)
[2016-05-31] MEDS: 1/2 NS 1,000 ML IV SCH ×2 (03:39→14:15)
[2016-05-31] MEDS: LIBRIUM PO SCH (04:11)
[2016-05-31 05:03] LABS: HEMATOCRIT 32.6 % (42.0-52.0); HEMOGLOBIN 11.1 g/dL (14.0-18.0); MCH 30.1 PG (27-31); MCV 88.3 FL (81-99); MPV 12.1 FL (7.4-10.4); RBC 3.69 XMIL (4.7-6.1)
[2016-05-31] MEDS: ATIVAN IV PRN ×2 (05:06→08:51)
[2016-05-31 05:27] LABS: CALCIUM 8.6 mg/dL (8.8-10.2); MAGNESIUM 1.8 mg/dL (1.5-2.7); POTASSIUM 3.4 mmol/L (3.5-5.1)
[2016-05-31] MEDS: SODIUM CHLORIDE 0.9% INJ SCH (05:55)
[2016-05-31] MEDS: PROTONIX IV SCH (05:55)
[2016-05-31] MEDS: CALMOSEPTINE OINTMENT TOP PRN (07:32)
[2016-05-31] MEDS: TYLENOL PO PRN (07:32)
[2016-05-31] MEDS: HALDOL IV PRN ×2 (07:32→14:12)
[2016-05-31] MEDS: LOVENOX SUBQ SCH (08:51)
[2016-05-31] MEDS: NORVASC PO SCH (08:51)
--- NOTE | 2016-05-31 09:42 | PROGRESS NOTE ---
DATE: 05/31/2016 SUBJECTIVE: He is again somnolent this morning. He will open his eyes. He responded "that is good" when I said his kidneys were better. OBJECTIVE: Blood pressure 165/96, heart rate 97, respirations 24, temperature 100 degrees. PHYSICAL EXAMINATION: Somnolent but, otherwise, in no distress. Skin is warm and dry. Conjunctivae are pink. Neck veins are not distended. Heart is regular without gallops. Lungs have equal breath sounds. No crackles. Abdomen is soft, nontender. Bowel sounds present. Extremities have no edema, clubbing, or cyanosis. LABORATORY DATA: Sodium 144, potassium 3.4, chloride 107, bicarbonate 17. BUN 30, creatinine 4.1. IMPRESSION: Acute kidney injury. Acute tubular necrosis. His creatinine has plateaued over the last 48 hours. Good urine output. No indications for dialysis. Likely will recover going forward. cc: Wayne Betancourt MD
[2016-05-31 11:30] LABS: URINE MICRO REVIEW NEEDED? NO; URINE SOURCE CATH
--- NOTE | 2016-05-31 11:31 | PROGRESS NOTE ---
DATE: 05/31/2016 SUBJECTIVE: Patient is still very sedated and sleeping. OBJECTIVE: Blood pressure 165/96, heart rate 97, respiratory 24, temperature of 100 degrees, 100% on room air. Temperature maximum was 100.1 degrees. Neuro exam: Patient is sedated but he does awaken. Skin exam: On is back showed the incision from his laminectomy which really looks clean, dry and intact. Some erythema but I do not feel out of proportion of his other issues. Cardiovascular: Regular rate and rhythm. Pulmonary: Bilateral breath sounds. Clear to auscultation. GI: Soft, nontender, nondistended. Bowel sounds are positive. LABORATORY DATA: His potassium is 3.4 today. His creatinine is 4.1. PROBLEM LIST: 1. Altered mental status, multifactorial. Will pursue an MRI. Neurology consult. Family does not feel this is alcohol withdrawal. It has been 8 days since he has been here. He does drink alcohol regularly but is not a drinker per se but still a possibility. I am going to aggressively wean Librium and follow clinically. 2. Acute renal failure. Appears to be stable. Continue to monitor closely. Nephrology following. 3. Fever. Will pursue fever workup and initiate antibiotics accordingly. cc: Joshua Camacho MD
[2016-05-31] MEDS: POTASSIUM CHLORIDE 20 MEQ/SWI 20 MEQ/100 ML IVPB IV SCH ×2 (11:32→14:12)
--- NOTE | 2016-05-31 11:34 | Diag Imaging Result Document ---
PROCEDURE NAME: CHEST-PORTABLE - 05/31/2016 PORTABLE CHEST X-RAY, 05/31/2016: COMPARISON: 05/28/2016. FINDINGS: Lung volumes are severely low. There is cardiomegaly. Pulmonary vessels are somewhat distended. There appears to be some hazy infiltrate or edema in the lung bases. IMPRESSION: Cardiomegaly. Hazy infiltrate or edema in the lung bases.
[2016-05-31 11:35] LABS: BILIRUBIN URINE NEGATIVE (NEGATIVE); BLOOD URINE NEGATIVE (NEGATIVE); COLOR YELLOW; GLUCOSE URINE NEGATIVE (NEGATIVE); LEUKOCYTES URINE MODERATE (NEGATIVE); NITRITE URINE NEGATIVE (NEGATIVE); PROTEIN URINE NEGATIVE (NEGATIVE); SP GRAVITY URINE 1.007; TURBIDITY URINE CLEAR (CLEAR); UR EPITHELIAL CELLS <10 /HPF (<10); URINE BACTERIA NEGATIVE /HPF; URINE CULTURE NEEDED? YES; URINE RBC <10 /HPF (<10); URINE WBC <10 /HPF (<10); UROBILINOGEN URINE NORMAL (NORMAL)
--- NOTE | 2016-05-31 13:27 | Diag Imaging Result Document ---
PROCEDURE NAME: MRI BRAIN W/O CONTRAST - 05/31/2016 MRI OF THE BRAIN: FINDINGS: There is considerable motion artifact, particularly on the FLAIR images. There is no evidence of restricted diffusion. There is no evidence of bleed or abnormal extra-axial fluid collection. There are some lacunae present in the basal ganglia bilaterally. IMPRESSION: Minimal microvascular change. No evidence of acute disease.
--- NOTE | 2016-05-31 15:28 | CONSULTATION ---
DATE OF CONSULTATION: 05/31/2016 SUBJECTIVE: Mr. José is 60 years old and he has apparent delirium. Recent history is that he had lumbar disk surgery about 10 days ago and did well from a surgical standpoint. He seemed to be changed mentally in recent days and was brought to the hospital. His initial laboratory work showed urine drug screen positive for oxycodone, negative for all other. He has been managed here with benzodiazepines, including chlordiazepoxide and now lorazepam. He has had fluctuating mental status, sometimes awake, alert, and more attentive, but very restless, and then he would require sedation to control his agitation. OBJECTIVE: Workup includes laboratory showing baseline creatinine 0.6, and creatinine up to 4.0 now. BUN is up a little bit. Noncontrast CT of the head was unremarkable. MRI of the brain today is unremarkable. I do not see anything else remarkable on the chemistry profile. He has had some mild temperature elevations, but nothing sustained. WBC count was 10, 000 initially, 12,000 later. He has some anemia. On examination, he is supine, restrained at the wrists, awake and alert, but not consistently attentive. He answered simple questions appropriately. He answered some questions incorrectly. He made some answers that I could not understand. Speech is dysarthric but mostly understandable. I could not test his cognitive function due to poor attention. He was not attentive to formal motor, sensory, visual field testing. He moved his arms and legs voluntarily, and appears to have equal power and equal tone in the limbs. Plantar response is silent bilaterally. He has full lateral eye movements spontaneously and with passive head turning. Pupils react to light. Facial motility is symmetric. Head and neck are unremarkable. There is no meningismus. IMPRESSION: Global encephalopathy, no definite clinical evidence of increased intracranial pressure, negative imaging studies. My impression is that this is most likely toxic state possibly related to pain medicines taken prior to admission, possibly opiate withdrawal, now benzodiazepine effects. He seems to have significant benzodiazepine tolerance, which makes me wonder if he had used those medicines previously. I think there may be a question of previous ethanol use. 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 However, his temperature is not consistently elevated, he has been awake and alert at times in recent days without antibiotics on board, and he certainly has not deteriorated clinically. I believe that if he had an untreated bacterial meningitis, we would see a different course. I do not think we would see bacterial cerebritis without focal features or evidence of increased pressure and certainly MRI would show findings. Likewise, significant encephalitis likely would be obvious on MRI. Therefore, he might have viral meningitis, which can be treated conservatively, or more likely he does not have an infectious MOT[employer] GENER[employer] BRUSH MAKER process. He could have "sterile" meningitis, which can be managed conservatively and generally would not be associated with delirium. There is not clinical evidence of spinal abscess. The delirium makes me suspect there is primarily a toxic encephalopathy. I do not have any urgent suggestion. We might consider EEG later. We might consider LP if he develops srini fever or if he deteriorates clinically. Might also consider spine imaging. No urgent suggestion today. Thanks for asking me to see Mr. José. cc: MD POLLO Galvan III
[2016-05-31] MEDS ORDERED: GEODON IM ONE (17:11)
[2016-05-31] MEDS ORDERED: STERILE WATER INJ. INJ ONE (17:11)
[2016-05-31] MEDS ORDERED: STERILE WATER INJ. INJ PRN (18:41)
[2016-05-31] MEDS ORDERED: APRESOLINE IV PRN (19:21)
[2016-05-31] MEDS ORDERED: LIBRIUM PO SCH (21:00)
[2016-06-01] MEDS: 1/2 NS 1,000 ML IV SCH ×3 (00:37→20:02)
[2016-06-01] MEDS: ATIVAN IV PRN (03:54)
[2016-06-01] MEDS: CALMOSEPTINE OINTMENT TOP PRN ×2 (03:56→05:37)
[2016-06-01] MEDS: GEODON IM PRN (04:07)
[2016-06-01 04:43] LABS: HEMATOCRIT 34.7 % (42.0-52.0); HEMOGLOBIN 11.8 g/dL (14.0-18.0); MCH 29.9 PG (27-31); MCV 87.8 FL (81-99); RBC 3.95 XMIL (4.7-6.1)
[2016-06-01 05:05] LABS: CALCIUM 8.4 mg/dL (8.8-10.2); POTASSIUM 3.8 mmol/L (3.5-5.1)
[2016-06-01] MEDS: PROTONIX IV SCH (05:36)
[2016-06-01] MEDS: SODIUM CHLORIDE 0.9% INJ SCH (05:36)
--- NOTE | 2016-06-01 08:08 | PROGRESS NOTE ---
DATE: 06/01/2016 Mr. José appears groggy, sedated. With stimulation, he is inconsistently attentive, and he followed simple commands. There is no evidence of language disturbance. He demonstrated equal power on bedside testing of arms and legs. He did well with finger tap bilaterally and [id number] testing is limited by his wrist restraints. Neck is supple without meningismus. He has full visual strong tested grossly. Head is unremarkable. Straight leg raising is negative. IMPRESSION: Continued global encephalopathy, possibly delirium, possibly medication effects. 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 Negative imaging is reassuring. I do not have any new suggestion from a neurologic standpoint today. Thanks for asking me to see Mr. José. cc: MD POLLO Galvan III
[2016-06-01] MEDS ORDERED: NORCO-5 PO ONE (10:23)
[2016-06-01] MEDS ORDERED: NORCO-5 PO PRN (10:23)
--- NOTE | 2016-06-01 10:44 | PROGRESS NOTE ---
DATE: 06/01/2016 SUBJECTIVE: Patient currently resting in bed asleep. He will open his eyes but drifts off back to sleep rapidly to verbal stimuli. OBJECTIVE: Vital Signs: Temperature 98.3 degrees, pulse 94, respiratory rate 25, blood pressure 160/95. Intake 3 L, output 1.9 L. PHYSICAL EXAMINATION: General: Middle-aged gentleman resting in bed. He is sleeping, drowsy. HEENT: Normocephalic, atraumatic. Oral mucosa moist. Neck: Supple. Trachea midline. No JVD. Cardiovascular: Regular rate and rhythm. No murmur or gallop appreciated. Pulmonary: He has equal excursion. He does have snoring noted. No wheeze. Abdomen: Soft, positive bowel sounds. : Not inspected. He has a Jose. Extremities: No clubbing, cyanosis or edema. Integumentary: Skin is warm and dry. LAB DATA: WBC of 16.1, hemoglobin 11.8, sodium 144, potassium 3.8, chloride 108 , CO2 15, BUN 31, creatinine 4.0. ASSESSMENT AND PLAN: Acute kidney injury, acute tubular necrosis. His creatinine plateaued day before yesterday. He has had some mild improvement over the last 48 hours. He has excellent urine output. We would expect to see him continue to improve. We will continue to monitor. No additional suggestions at this time. Dictated by JUJU Ellis for Wayne Betancourt MD Seen, data reviewed, discussed with Finn Wei on 06/01/16. I agree with the above assessment and plan of care. cc: Wayne Betancourt MD [facility]
--- NOTE | 2016-06-01 10:49 | PROGRESS NOTE ---
DATE: 06/01/2016 SUBJECTIVE: The patient has no focal complaints. He is awake this morning but he is not really oriented but he does follow questions. He had episodes of agitation last night that required antipsychotic medications. OBJECTIVE: Blood pressure 160/95, heart rate 94, respiratory 25, temperature 98.3 degrees, 96% on room air.Cardiovascular: Regular rate and rhythm. Pulmonary: Bilateral breath sounds. Clear to auscultation. GI: Soft, nontender, nondistended. Bowel sounds are positive. Extremities: No clubbing or cyanosis. Lymphatic exam no peripheral edema. Neurological: Nonfocal although somewhat lethargic and alert to name. Musculoskeletal Exam: As described. LABORATORY DATA: White count 16, hemoglobin and hematocrit 11 and 34, platelets 299,000. BUN and creatinine of 31 and 4.0. CRP is very elevated at 142 with a B12 of 464 and folate which was normal and so far cultures are negative. His white count is still somewhat elevated without a clear source. There is some question of pneumonia on his chest x-ray versus edema. PROBLEM LIST: 1. Acute encephalopathy I still do not have a great explanation for this. We have been under the impression he is going through alcohol withdrawal but it has been 10 days I think that is an unlikely diagnosis at this point. I am trying to cut back as much on his mind altering medications. I am not sure if there may be an opiate withdrawal issue. He is not really on long-acting pain medications. I am not sure if that is a contributory issue. He does have a very high sedimentation rate, so we will need to continue to follow that and will go from there, but clinically he is not improved as far as mental status is concerned. Neurology is following. His MRI was really unremarkable. It would be unusual for him to have meningitis this far out but that may need to be entertained. 2. Leukocytosis may be related to pneumonia. I am going to empirically start some antibiotics and I think I am going to get the ID opinion just to see if they think there is anything else going on and whether or not we need to pursue any other interventional issues. His urine looked unremarkable, so I will continue the Zosyn and follow clinically. DISPOSITION: Pending the resolution of his other issues we will pursue autoimmune workup too. I think it is unlikely he spontaneously has vasculitis, but with the CRP being very elevated there is a concern for that. cc: Joshua Camacho MD
[2016-06-01] MEDS: TYLENOL PO PRN (12:57)
[2016-06-01] MEDS: NORVASC PO SCH (12:58)
[2016-06-01] MEDS: PERICOLACE PO SCH ×2 (12:58→20:03)
[2016-06-01] MEDS: TRANDATE PO SCH ×2 (12:58→20:00)
[2016-06-01] MEDS: ZOSYN 2.25 GM/NS 2.25 GM/50 ML IVPB IV SCH ×3 (13:05→22:30)
[2016-06-01 15:49] LABS: DIFF NEEDED? NO
--- NOTE | 2016-06-01 15:58 | PROGRESS NOTE ---
DATE: 06/01/2016 Mr. José developed some fever. LP was done at the L4 space on first pass with opening pressure 22 cm of CSF. Crystal clear fluid was obtained and sent to the lab. Further plans will depend on the CSF reports. cc: Sam Donato III, MD
[2016-06-01] MEDS ORDERED: CUBICIN (FOR INPATIENT USE) 500 MG in NS 100 ML IV SCH (16:00)
[2016-06-01 16:16] LABS: GLUCOSE CSF 56 mg/dL (39-75)
[2016-06-01 16:51] LABS: APPEARANCE CLEAR; WBC BF 4 /cumm
[2016-06-01 16:53] LABS: RBC BF 0 /cumm
--- NOTE | 2016-06-01 19:20 | CONSULTATION ---
DATE OF CONSULTATION: 06/01/2016 CONCLUSION: The patient had fever this afternoon. He also on chest x-ray has bilateral infiltrates versus edema. The exact cause of the fever is uncertain to me. I think the patient could have pneumonia. We looked at his incision on the back and it does not look like there is any evidence of infection from the lumbar spine surgery the patient recently had. Dr. Donato did a spinal tap this afternoon and CSF was clear. It had only 4 white cells. The protein was 38.7 and the glucose was 56. All of these values are normal and I doubt that the patient has a central nervous system infection such as meningitis. CT of the head did not show any acute intracranial abnormality and also the visualized portions of the paranasal sinuses appeared normal. RECOMMENDATIONS: I agree with Dr. Camacho's decision to treat the patient with antibiotics in view of the fact that the patient spiked a fever today. He started Zosyn with which I agree and I have also added Zyvox. DISCUSSION: The patient is unable provide a history and no family member is here. The patient recently had a lumbar laminectomy. He was admitted to the hospital here with an altered mental status and today he spiked a fever to 101.2 degrees. PAST MEDICAL HISTORY: According to the chart the patient's past medical history includes hypertension and benign prostatic hypertrophy. PAST SURGICAL HISTORY: Includes a transurethral resection of the prostate in the 1980s and more recently a lumbar laminectomy. SOCIAL HISTORY: The patient does drink alcoholic beverages but he does not smoke cigarettes or abuse drugs. He lives with his . FAMILY HISTORY: Positive for a CVA. REVIEW OF SYSTEMS: Unable to be obtained. HOME MEDICATIONS: Include Norvasc, Flexeril, hydrochlorothiazide, Mcalister, and Robaxin. PHYSICAL EXAMINATION: Vital signs: Temperature was 101.2 degrees, now it is 99.2, pulse 79, respirations 26, blood pressure 133/78. General: This is a somewhat ill-appearing, middle-aged male. He is in no acute distress. Head, eyes, ears, nose, and throat: No drainage noted from the nose or ears. There were no white patches on his tongue. Neck: No meningismus. Thorax: No increased AP diameter. Lungs: A few bibasilar rales were heard. Cardiovascular: Heart rate was regular. Peripheral pulses are palpable. Abdomen: Soft and nontender. Genitalia: Jose catheter is in place. Back: The area of the laminectomy incision was not erythematous, swollen, or fluctuant. Neurologic: Patient is lethargic. He tried at times to get out of bed. He did follow requests to move his extremities. He did talk but I could not understand what he was saying. Integument: No rash noted. Thank you for the consult. cc: Stanton Ralph MD
[2016-06-01] MEDS: ZYVOX PO SCH (20:00)
[2016-06-01] MEDS ORDERED: ZYPREXA ZYDIS PO SCH (21:00)
[2016-06-02] MEDS: ATIVAN IV PRN ×2 (04:45→14:02)
[2016-06-02] MEDS: GEODON IM PRN ×2 (05:00→14:02)
[2016-06-02] MEDS: ZOSYN 2.25 GM/NS 2.25 GM/50 ML IVPB IV SCH ×3 (05:15→16:21)
[2016-06-02] MEDS: PROTONIX IV SCH (05:22)
[2016-06-02 06:10] LABS: HEMATOCRIT 35.4 % (42.0-52.0); HEMOGLOBIN 11.7 g/dL (14.0-18.0); MCH 29.9 PG (27-31); MCHC 33.1 g/dL (33-37); MCV 90.5 FL (81-99); MPV 12.6 FL (7.4-10.4); RBC 3.91 XMIL (4.7-6.1)
[2016-06-02 06:27] LABS: CALCIUM 8.9 mg/dL (8.8-10.2); POTASSIUM 3.8 mmol/L (3.5-5.1)
[2016-06-02] MEDS: TRANDATE PO SCH ×2 (08:28→20:11)
[2016-06-02] MEDS: 1/2 NS 1,000 ML IV SCH (08:28)
[2016-06-02] MEDS: NORVASC PO SCH (08:28)
[2016-06-02] MEDS: ZYVOX PO SCH ×2 (08:28→20:11)
[2016-06-02] MEDS: PERICOLACE PO SCH ×2 (08:29→20:11)
--- NOTE | 2016-06-02 08:32 | PROGRESS NOTE ---
DATE: 06/02/2016 SUBJECTIVE: Mr. José is awake, alert, more attentive, this morning. He continues disoriented. He confabulated. There is nothing focal on gross neurologic testing this morning. His spinal fluid was unremarkable. He is afebrile now. I still suspect this is primarily medication -related global encephalopathy. There is no evidence of MANAGEMENT PROFESSIONAL infection. No suggestion today from a neurologic standpoint. Thanks for asking me to see Mr. José. cc: MD POLLO Galvan III
[2016-06-02] MEDS ORDERED: ZYPREXA ZYDIS PO SCH (10:27)
--- NOTE | 2016-06-02 10:48 | PROGRESS NOTE ---
DATE: 06/02/2016 SUBJECTIVE: The patient is more clear today, I feel like not as confused, but he still has periods of agitation. OBJECTIVE: Vital Signs: Have stabilized. Still somewhat hypertensive, but better controlled. BP 165/96, heart rate of 88, respiratory rate 22, temperature 98.7 degrees. Cardiovascular: Regular rate and rhythm. Pulmonary: Bilateral breath sounds. Clear to auscultation. GI: Soft, nontender, nondistended. Bowel sounds are positive. Neurologic: He is lethargic but he is alert to name and place, intermittently to date. LABORATORY DATA: Sodium 146, BUN and creatinine are 33 and 3.9, which is a little bit of an improvement. PROBLEM LIST: 1. Acute encephalopathy, presumably toxic related to drug-effect, kidney dysfunction, recent surgery. We are trying to liberate him as much from any major sedating medications. I am giving him some Zyprexa at night just to kind of help with agitation. Our goal will be to wean that off. He is slowly improving. MRI of the brain has been unremarkable. LP yesterday did not show any acute signs of infection. He does have a high CRP so we will evaluate for infection at the base of his spine, although his wound site looked clean, dry, and intact, but we will progress with an MRI today. So far blood cultures have been negative. 2. Fever-possible pneumonia. We will continue Zosyn which has been renally dosed and Zyvox pending culture clearance. ID is following; I appreciate their input. 3. Hypernatremia. We will adjust his fluids and follow. 4. Hypertension. Continue his regular medications. 5. Acute kidney injury. That seems to be improving as well. DISPOSITION: Pending resolution of his multiple issues. I am going to start to progress with PT somewhat just to see if we can get some strength training in him. I think he will probably transition to step-down here in the next 24 hours. cc: Joshua Camacho MD
[2016-06-02] MEDS ORDERED: D5 1/4 NS 1,000 ML IV SCH (11:00)
--- NOTE | 2016-06-02 15:37 | PROGRESS NOTE ---
DATE: 06/02/2016 SUBJECTIVE: Patient is sitting in bed. He is quite agitated, trying to get up. He is confused. He does not answer questions and does not want to follow commands. OBJECTIVE: Vital Signs: Temperature 99.9 degrees, pulse 86, respiratory rate 27, blood pressure 150/88. Intake 3.2 L. Output 2.1 L. General: Middle-aged gentleman resting in bed. He is quite agitated. He is pushing caregivers away. HEENT: Normocephalic atraumatic. DONATO, his oral mucosa is moist. Neck: Supple. There is no JVD noted. Cardiovascular: Regular rate and rhythm. There is no murmur or gallop appreciated. Pulmonary: He has some scattered wheezes bilaterally. He has no increased work of breathing. He remains on O2 supplementation via nasal cannula. Abdomen: Soft, positive bowel sounds. : Not inspected. He has a Jose. Extremities: No clubbing, cyanosis or edema. Integumentary: Skin is warm and dry. LABORATORY DATA: WBC of 14.1, hemoglobin 11.7, sodium 146, potassium 3.8, CO2 20, BUN 33, creatinine 3.9. ASSESSMENT AND PLAN: 1. Acute kidney injury. Acute tubular necrosis. Creatinine appears to be slowly improving. He is not fluid overloaded. His other labs are in target. We will continue to follow daily. No additional suggestions at this time. 2. Blood pressure acceptable. Seen, data reviewed, discussed with Finn Wei on 06/02/16. I agree with the above assessment and plan of care. rg Dictated by JUJU Ellis for Wayne Betancourt MD cc: Wayne Betancourt MD [facility]
[2016-06-02] MEDS ORDERED: THIAMINE 100 MG, FOLIC ACID 1 MG, M.V.I.-12 10 ML, MAGNESIUM SULFATE 1 GM, POTASSIUM CH... IV SCH ×6 (18:00)
--- NOTE | 2016-06-02 20:15 | PROGRESS NOTE ---
DATE: 06/02/2016 PRESENT ILLNESS: The patient is status post lumbar laminectomy. He has fever and at times becomes delirious. As far as fever goes, I think it could well be due to a bibasilar pneumonia. Why he has the spells where he gets delirious is uncertain to me. I think it is probably metabolic in nature caused by mixing various medications. Based on the cerebrospinal fluid findings, I do not think the patient has any central nervous system infection. It does not feel to me at the laminectomy site that there is any infection there. However, tomorrow again we are going to try to get an MRI to see if there is a fluid collection that could be infected. MEDICATIONS: The patient currently is receiving IV Zosyn and p.o. Zyvox. PHYSICAL EXAMINATION: Vital Signs: Temperature is 99.1 degrees, pulse 87, respirations 17, blood pressure 166/92. Generally: The patient tonight is much more alert. He is coherent. He is moving his extremities to request. Neck: No meningismus. Lungs: Clear to auscultation. Cardiovascular: Regular heart rate. Abdomen: Soft and nontender. Low back area: The patient's incision is intact. There is no erythema and the area is not tender. LABORATORY AND X-RAY: CBC tonight shows a white count of 14,130, hemoglobin 11.7, and platelet count 316,000. Creatinine is 3.9. GFR is 16. Blood and spinal fluid cultures are negative. ASSESSMENT AND PLAN: 1. The patient has pneumonia. I am going to continue treating him with Zyvox and Zosyn, and we were going to try again tomorrow to get an MRI of the patient's back to look to see if there is any infectious process going on at the surgical site. 2. Comorbidities: He has had recent surgery and he has been on a variety of medications that may be interacting together. cc: Stanton Ralph MD
[2016-06-02 21:00] VITALS: BP 152/85
[2016-06-03 09:47] LABS: CYTOPLASMIC NEUTROPHILIC AB SEE COMMENTS; CYTOPLASMIC NEUTROPHILIC AB YES
[2016-06-03] MEDS ORDERED: CUBICIN (FOR INPATIENT USE) 500 MG in NS 100 ML IV SCH (16:00)
--- NOTE | 2016-07-21 22:46 | DISCHARGE SUMMARY ---
ADMISSION DATE: 05/22/2016 DISCHARGE DATE: 06/02/2016 DISCHARGE DIAGNOSES: 1. Acute encephalopathy, unclear etiology. 2. Febrile illness with concern over pneumonia. 3. Hyponatremia. 4. Hypertension. 5. Acute kidney injury. 6. History and physical showing metabolic encephalopathy. ADMISSION DIAGNOSES: 1. Leukocytosis. 2. Hypokalemia. 3. Hypertension. 4. Urinary retention. 5. Acute pain. 6. Constipation. DISPOSITION: I think patient ended up being transferred to [facility] for further management. CONSULTATIONS: 1. Wayne Betancourt MD for acute kidney injury. 2. Sam Donato III, MD, Neurology. 3. Stanton Ralph MD, Infectious Disease. TESTIN. Head CT on the was unremarkable. 2. Venous ultrasound on the was negative. 3. Brain MRI on the was also negative. HOSPITAL COURSE: Please refer to complete history and physical. Briefly, this is a 68-year-old male who was admitted on the with confusion. He recently had lower spinal surgery per Dr. Bond. Discharged on Monday. He took hydrocodone and Flexeril, and became extremely agitated with hallucinations. He had urinary retention. A Jose catheter was placed with 2500 out. He had significant constipation. Essentially he had persistent confusion while he was here. Initial white count of 17,000. He had a lower extremity x-ray which was negative. He had a chest x-ray which showed no significant pathology and a femur x-ray that was really unremarkable. He had persistent confusion and agitation requiring intermittent medications. At some point I guess from admission to next day there was some concern over alcohol withdrawal syndrome and he was treated with Ativan. He drank 1-2 drinks every day per his , but at baseline he is a very functional gentleman. 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 In any case he just had persistent confusion and was not really improving. He subsequently started developing worsening hypertension and renal dysfunction with a creatinine that went up to 5, and he came in with normal renal function. Renal ultrasound on the was really unremarkable. Creatinine bumped up a little bit. Fluids were adjusted to half-normal because of hypernatremia. His renal ultrasound was negative. Dr. Betancourt evaluated him on the and felt he had a likely ATN type episode. His urine output was good so there were no indications for dialysis. The patient improved very slowly. He was maintained in the ICU just because of persistent agitation. He was able to follow commands somewhat. I started taking care of him on the . It is unclear what his acute kidney injury was. I had further discussion with the family because they did not feel that alcohol withdrawal was an adequate diagnosis for him because they did not feel like he really abused alcohol regularly. Again MRI was pursued on the with great difficulty because of his agitation but it did not show any ischemic stroke. Dr. Donato was consulted on the with concern over metabolic infection but he did have a questionable [employer] infection. We did end up pursuing an LP which was negative for infection. However, he is still intermittently agitated although I think by the time he was transferred he was answering questions appropriately although he still had poor insight and really no issues. He had been going through "alcohol withdrawal" for 10 days and really was still confused which was a bit odd and not consistent. ID was consulted for persistent fever and as described he did undergo LP which was really unremarkable. He was started on Zosyn and Zyvox because there was some concern over possible His incision from his laminectomy was really unremarkable. Plan was to do an MRI of his back but I do not think this was completed prior to transfer. After prolonged discussions with his , and then the 2 daughters who had begun visiting, they were concerned about multiple diagnoses and that he was not improving, and requested transfer to [facility] for further evaluation; additionally for evaluation per Neurosurgery to ensure that there was not anything related to that, that could be causing his confusion. Again the plan was to pursue an MRI of his back but we were not able do that prior to transfer and again patient was persistently agitated. He was somewhat more alert I felt and was answering questions, and he would have intermittent orientation which is more consistent with delirium. In any case patient was transferred to [facility] for further management. At the time of transfer his kidney infection had improved somewhat, it was down to 3.9. His thiamine level was normal. There was some concern over his thiamine deficiency but it was normal. B12 and folate levels were normal. CSF was unremarkable. His P-ANCA level was somewhat elevated but his C-ANCA was negative, but that was found out after the fact. He did have an elevated sedimentation rate of 72 and an elevated CRP of 142 which raises the question of possible vasculitis. Again further management for final care per [facility] team. cc: MD Cruz Medina MD
== END 2016-06-02 20:50 | disposition short-term general hospital (02) ==
LOC: ED 03:05 → 4N 12:02 → SUATTDRO 12:02 → ICU 19:43
PROVIDERS: ATTEND Internal Medicine